=== PATIENT | female | born 1970 | race Hispanic/Latino ===

== ENCOUNTER 2019-03-31 20:49 | Emergency (ER) | payer SELFPAY ==
[~2019-03-31 20:49] MED LIST: Iopamidol-370 76% 500 ML 1 ML ONE
--- NOTE | 2019-03-31 21:14 | RAD ---
Chest AP view INDICATION: 48-year-old female with chest pain COMPARISON: PA and lateral of the chest dated September 27, 2004 FINDINGS: Lungs: The lungs are clear Cardiac silhouette: The cardiomediastinal silhouette appears within normal limits. Pulmonary vasculature: Normal Pleural spaces: No pleural effusion or pneumothorax is demonstrated. Upper abdomen: No abnormality seen. Osseous structures: No acute osseous abnormality. Additional findings: None. IMPRESSION: No acute cardiopulmonary abnormality.
[2019-03-31 21:29] LABS: #Basophils 0.1 thou/uL (0.0-0.2); #Eosinphils 0.3 thou/uL (0.0-0.7); #Lymphocytes 3.1 thou/uL (1.20-3.40); #Neutrophils 7.4 thou/uL (1.40-6.50); %Basophils 0.8 % (0.0-1.0); %Eosinophils 2.6 % (0.0-10.0); %Lymphocytes 25.8 % (21.0-51.0); %Monocytes 8.7 % (0.0-10.0); %Neutrophils 62.1 % (42.0-75.0); Anisocytosis SLIGHT = 6-15 cells (100X) (0-5/hpf); Hemoglobin 9.4 g/dL (12.0-16.0); MDiff Complete? YES; Mean Corpuscular HGB CONC 31.5 g/dL (32.0-36.0); Mean Corpuscular Hemoglobin 22.7 pg (27.0-31.0); Mean Platelet Volume 7.7 fL (7.4-10.4); Platelet Count 501 thou/uL (130-400); RBC Distribution Width 14.9 % (11.5-14.5); Red Blood Cell (RBC) Count 4.14 mill/uL (4.20-5.40); White Blood Cell (WBC) Count 11.9 thou/uL (4.8-10.8)
[2019-03-31 21:34] LABS: ALT (SGPT) 16 U/L (8-55); AST (SGOT) 20 U/L (5-34); Albumin 4.5 g/dL (3.5-5.0); Alkaline Phosphatase 99 U/L (40-110); Anion Gap 12 mmol/L (10-20); BUN (Urea Nitrogen) 18 mg/dL (7.0-18.7); Bilirubin, Total 0.2 mg/dL (0.2-1.2); Calc. Creatinine Clearance 0 mL/min (70-130); Calcium 9.5 mg/dL (7.8-10.44); Carbon Dioxide 26 mmol/L (22-29); Chloride 104 mmol/L (98-107); Estimated GFR-MDRD 81; Globulin 3.5 g/dL (2.4-3.5); Glucose 104 mg/dL (70-105); Potassium 4.3 mmol/L (3.5-5.1); Sodium 138 mmol/L (136-145)
[2019-03-31] MEDS ORDERED: Nitroglycerin 0.4 MG TAB 1 EACH ONE (21:57)
[2019-03-31] MEDS ORDERED: Aspirin 325 MG TAB ONE (21:57)
--- NOTE | 2019-03-31 22:26 | CT ---
CTA OF THE CHEST AND ABDOMEN UTILIZING AN AORTIC DISSECTION PROTOCOL AND 3-D REFORMATTED IMAGING INDICATION: 48-year-old female with chest pain that started at 7:00 PM tonight. This is predominantly midsternal chest pain that extends into the epigastrium and back. Patient reports a syncopal episode with shortness of breath and nausea COMPARISON: None FINDINGS: Aorta: No acute aortic stenosis, occlusion or aneurysmal formation demonstrated. Central pulmonary artery: No central pulmonary embolus demonstrated. Additional thorax findings: No focal consolidation, pleural effusion or pneumothorax is evident. Additional abdominal findings: The gallbladder is surgically absent. There is fatty infiltration of t he liver. No free fluid is evident. 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 There is a single right renal artery. Osseous structures: No acute osseous abnormality. IMPRESSION: 1. No appreciable aortic stenosis, occlusion or aneurysmal formation demonstrated. 2. Fatty liver 3. Cholecystectomy
[2019-04-01 00:31] LABS: Troponin I Less than 0.010 ng/mL (< 0.028)
== END 2019-04-01 00:54 | disposition home or self-care (01) ==
LOC: ERS 20:49
DX: R07.2 Precordial pain (principal)
CPT/HCPCS: 36415; 71045; 71275; 72191; 74175; 80053; 83690; 84484; 85025; 93005; Q9967

== ENCOUNTER 2021-09-13 15:14 | Outpatient (CLI) | payer BC | END 2021-09-13 15:15 | disposition home or self-care (01) | LOC: BICMAMMO 15:14 | PROVIDERS: ATTEND Family Medicine | DX: Z12.31 Encounter for screening mammogram for malignant neoplasm of breast (principal) | CPT/HCPCS: 77063; 77067 ==

== ENCOUNTER 2021-11-21 07:57 | Outpatient (CLI) | payer BC ==
[2021-11-21] MEDS ORDERED: Iopamidol-370 76% 500 ML 1 ML ONE (08:54)
== END 2021-11-21 07:58 | disposition home or self-care (01) ==
LOC: BICCT 07:57
PROVIDERS: ATTEND Family Medicine
DX: R10.9 Unspecified abdominal pain (principal); K76.0 Fatty (change of) liver, not elsewhere classified
CPT/HCPCS: 74177; Q9967